=== PATIENT | female | born 1985 | race Caucasian/White ===

== ENCOUNTER → 2019-03-16 | Outpatient (CLI) | payer OTHER ==
--- NOTE | 2019-03-16 15:30 | Diagnostic Imaging Report ---
INDICATION: survey. TECHNIQUE: Multiple real-time grayscale images were obtained over the gravid uterus. COMPARISON: None FINDINGS: There is a single live fetus in a variable presentation. heart rate was recorded at 146 bpm. Placenta is posterior. Amniotic fluid volume is 8.8 cm. Cervical length is 4.0 cm. survey demonstrates kidneys, bladder and stomach to be unremarkable. brain is unremarkable. There is a four-chamber heart. There is a three-vessel cord with normal insertion. spine is unremarkable. Maternal adnexa was not evaluated. Biometrical measurements are as follows: Biparietal 4.46 cm, age 19 weeks 4 days. Head circumference 17.18 cm, age 19 weeks 6 days. Abdominal circumference 14.81 cm, age 20 weeks 1 days. Femur length 3.38 cm, age 20 weeks 5 days. Sonographic estimate age: 20 weeks 1 days. Sonographic estimated date of delivery: 08/02/2019. Estimated Weight: 341 gm (+/- 50 gm). LMP percentile: 68%. heart rate: 146 beats per minute. number: 1 of 1. IMPRESSION: Single live IUP approximately 20 weeks 1 day gestational age. Estimated date of confinement sonographically is 08/02/2019. Dictated by: Dictated on workstation # [id number]
== END ==
LOC: RAD 14:00
PROVIDERS: ATTEND Nurse Practitioner Women's Health
DX: Z36.9 Encounter for antenatal screening, unspecified (principal); Z3A.20 20 weeks gestation of pregnancy
CPT/HCPCS: 76805

== ENCOUNTER 2019-05-26 00:13 | Outpatient (CLI) | payer OTHER ==
[~2019-05-26] VITALS: Ht 185.5 cm; Wt 115.8 kg
[2019-05-26 00:15] VITALS: BP 143/79
--- NOTE | 2019-05-26 00:15 | NUR ---
GRIFFIN VILA presented to unit via ambulatory from ED, with c/o DECREASED MOVEMENT. GRIFFIN VILA weighed, gowned, voided, and to bed. EFHM and TOCO applied, VS taken. GRIFFIN VILA oriented to bed controls, call light, TV, heat, and A/C controls.
[2019-05-26 00:23] VITALS: BP 143/79
[2019-05-26 00:39] VITALS: BP 136/77
[2019-05-26 00:54] VITALS: BP 139/76
[2019-05-26] MEDS ORDERED: PREN-53 PO (01:05)
--- NOTE | 2019-05-26 01:07 | NUR ---
Dr. Marroquin called and informed that pt of Dr. Rodriguez's was here for decreased movement. Strip, contraction pattern, and vitals reviewed. states that when pt starts feeling movement she may be discharged.
[2019-05-26 01:09] VITALS: BP 135/74
--- NOTE | 2019-05-26 01:09 | NUR ---
Pt. asked if baby has been moving since being her. She states that she has moved multiple times since being here and has "kicked the monitors a few times."
--- NOTE | 2019-05-26 01:20 | NUR ---
Discharge instructions reviewed by Nabil Borjas RN at this time. Pt. has no further questions and walks out on her own. No s/s of distress.
--- NOTE | 2019-05-29 08:12 | Physician Query-Final Dx ---
KEY COOMBS 05/29/19 0812: Clinic Account Progress/Dx Physician Query: Please give diagnosis Please include # weeks gestation Date of Service May 26, 2019 at 00:13 LIMA BEALUIEU DO 05/29/19 0937: Clinic Account Progress/Dx DIAGNOSIS: Diagnosis 30 week IUP Decreased movement KEY COOMBS May 29, 2019 08:12 LIMA BEAULIEU DO May 29, 2019 09:37
== END 2019-05-26 01:20 ==
LOC: LDRP 00:13 → WSo 00:13
PROVIDERS: ATTEND Obstetrics & Gynecology
DX: O36.8131 Decreased fetal movements, third trimester, fetus 1 (principal); Z3A.30 30 weeks gestation of pregnancy
CPT/HCPCS: 99212

== ENCOUNTER → 2019-07-10 | Outpatient (CLI) | payer OTHER ==
[~2019-07-10] MED LIST: PREN-53 PO
--- NOTE | 2019-07-10 16:09 | Diagnostic Imaging Report ---
INDICATION: , growth, position. COMPARISON: March 16, 2019. TECHNIQUE: Multiple real-time grayscale images were obtained over the gravid uterus. FINDINGS: A single live intrauterine gestation is identified in a breech presentation. The placenta is fundal and posteriorly positioned without evidence of placenta previa or placental abruption. Amniotic fluid is within normal limits with inadequate index being 11 cm with the largest single pocket measuring 3.6 cm. cardiac motion is documented at 152 BPM. estimated gestational age is calculated to be 36 weeks and 0 days. This is consistent with clinical dating and there has been adequate interval growth since the prior exam. The head circumference appears slightly advanced at 39 weeks and 1 day, though biparietal diameter appears slightly lagging at 33 weeks and 1 day. anatomy was not specifically evaluated on this examination. IMPRESSION: Single live intrauterine gestation in a breech presentation with an estimated gestational age of 36 weeks and 0 days. Therefore, there is an estimated due date based upon this examination of August 07, 2019. Findings are consistent with clinical dating and there has been adequate interval growth since the prior examination. Apparent varying gestational age between the biparietal diameter and the head circumference, as described above. This most likely is simply technical in nature related to positioning. Follow-up ultrasound prior to delivery could be obtained to ensure continued adequate growth. Biometrical measurements are as follows: Biparietal 8.24 cm, age 33 weeks 1 days. Head circumference 33.93 cm, age 39 weeks 1 days. Abdominal circumference 30.67 cm, age 34 weeks 5 days. Femur length 7.15 cm, age 36 weeks 5 days. Sonographic estimate age: 36 weeks 0 days. Sonographic estimated date of delivery: 08/07/2019. Estimated Weight: 2685 gm (+/- 392 gm). LMP percentile: 28%. heart rate: 152 beats per minute. number: 1 of 1. Dictated by: Dictated on workstation # [id number]
== END ==
LOC: RAD 13:48
PROVIDERS: ATTEND Obstetrics & Gynecology
DX: Z36.9 Encounter for antenatal screening, unspecified (principal); O32.1XX0 Maternal care for breech presentation, not applicable or unspecified; Z3A.36 36 weeks gestation of pregnancy
CPT/HCPCS: 76816

== ENCOUNTER 2019-07-28 06:58 | Outpatient (CLI) | payer OTHER ==
[~2019-07-28] VITALS: Ht 185 cm; Wt 118.0 kg
== END 2019-07-28 15:07 ==
LOC: PREOP 06:58 → EDSTATUS 08:00 → PREOP 10:15
PROVIDERS: ATTEND Obstetrics & Gynecology
DX: Z01.818 Encounter for other preprocedural examination (principal)

== ENCOUNTER 2019-08-01 09:00 | Inpatient (IN) | payer OTHER ==
[2019-08-01] VITALS (11 sets, daily range): BP systolic 107–135; BP diastolic 8–93
[~2019-08-01] VITALS: Ht 185 cm; Wt 118.9 kg
[2019-08-01] MEDS ORDERED: ONDANSETRON 4 MG/2 ML (SDV) Z0FRAN ONE (10:35)
[2019-08-01] MEDS ORDERED: OXYTOCIN PRE-MIX DRIP 1,000 ML IV ONE (10:35)
[2019-08-01] MEDS ORDERED: BUPIVACAINE 0.5% 30 ML (SENSORCAINE) VIAL ONE (10:35)
[2019-08-01] MEDS ORDERED: DEXAMETHASONE 10 MG/ML (DECADRON) 1 ML VIAL ONE (10:35)
--- NOTE | 2019-08-01 10:35 | NUR ---
GRIFFIN VILA presented to unit via ambulation from ED, accompanied by S.o., for repeat . GRIFFIN VILA weighed, gowned, voided, and to bed. EFHM and TOCO applied, VS taken. GRIFFIN VILA oriented to bed controls, call light, TV, heat, and A/C controls.
[2019-08-01] MEDS ORDERED: fentaNYL INJECTION 100 MCG/2 ML AMP ONE (10:36)
[2019-08-01] MEDS ORDERED: ceFAZolin INJECTION 1,000 MG in WATER (STERILE) FOR INJECTION 10 ML IV ONE (10:45)
[2019-08-01] MEDS: LACTATED RINGERS 1,000 ML IV PRN ×2 (11:15→12:10)
[2019-08-01 11:30] LABS: BASOPHILS % (AUTO) 0 % (0-10); EOSINOPHILS # (AUTO) 0.1 10^3/uL (0.0-0.3); EOSINOPHILS % (AUTO) 1 % (0-10); HEMATOCRIT 40 % (35-52); HEMOGLOBIN 13.8 G/DL (11.5-16.0); LYMPHOCYTES # (AUTO) 1.9 X 10^3 (1.0-4.0); LYMPHOCYTES % (AUTO) 18 % (12-44); MEAN CORPUSCULAR HEMOGLOBIN 31 PG (25-34); MEAN CORPUSCULAR HGB CONC 35 G/DL (32-36); MEAN CORPUSCULAR VOLUME 90 FL (80-99); MEAN PLATELET VOLUME 11.3 FL (7.4-10.4); MONOCYTES # (AUTO) 0.7 X 10^3 (0.0-1.0); MONOCYTES % (AUTO) 7 % (0-12); NEUTROPHILS # (AUTO) 7.8 X 10^3 (1.8-7.8); NEUTROPHILS % (AUTO) 74 % (42-75); PLATELET COUNT 208 10^3/uL (130-400); RED CELL DISTRIBUTION WIDTH 14.5 % (10.0-14.5); WHITE BLOOD COUNT 10.5 10^3/uL (4.3-11.0)
[2019-08-01 11:31] LABS: BILIRUBIN,URINE NEGATIVE (NEGATIVE); CLARITY,URINE SL CLOUDY; COLOR,URINE YELLOW; GLUCOSE, URINE (UA) NEGATIVE (NEGATIVE); KETONES,URINE NEGATIVE (NEGATIVE); LEUKOCYTE ESTERASE ,URINE 1+ (NEGATIVE); NITRITE,URINE NEGATIVE (NEGATIVE); PROTEIN,URINE NEGATIVE (NEGATIVE)
[2019-08-01] MEDS ORDERED: FAMOTIDINE 20MG/2ML IV (PEPCID) ONE (11:34)
[2019-08-01] MEDS ORDERED: METOCLOPRAMIDE INJ 10 MG/2 ML (REGLAN) ONE (11:34)
[2019-08-01] MEDS ORDERED: CITRIC ACID/SOB CIT (BICITRA) 30 ML UDC ONE (11:34)
[2019-08-01 11:37] LABS: BACTERIA,URINE MODERATE /HPF; RBC,URINE 0-2 /HPF
[2019-08-01] MEDS ORDERED: PHENYLEPHRINE 100 MCG/ML 10 ML (ANESTHESIA) SYR ONE (12:02)
--- OUTSIDE RECORDS SUMMARY | 2019-08-01 12:07 | XMS REPORT | Continuity of Care Document ---
Author Organization Unknown Address Unknown Phone Unavailable Allergies Active Description Code Type Severity Reaction Onset Reported/Identified Relationship to Patient Clinical Status Yes No Known Drug Allergies [id number] Drug Allergy Unknown N/A 07/28/2019 Medications There is no data. Problems Date Dx Coded Attending Type Code Diagnosis Diagnosed By 03/17/2019 DU SIGALA PRENATAL GENETIC COUNSELOR Ot Z36.9 ENCOUNTER FOR SCREENING, UNSPE 03/17/2019 DU SIGALA PRENATAL GENETIC COUNSELOR Ot Z3A.20 20 WEEKS GESTATION OF 04/05/2019 DU SIGALA PRENATAL GENETIC COUNSELOR Ot Z36.9 ENCOUNTER FOR SCREENING, UNSPE 04/05/2019 DU SIGALA PRENATAL GENETIC COUNSELOR Ot Z3A.20 20 WEEKS GESTATION OF 05/26/2019 DU SIGALA PRENATAL GENETIC COUNSELOR Ot Z36.9 ENCOUNTER FOR SCREENING, UNSPE 05/26/2019 DU SIGALA PRENATAL GENETIC COUNSELOR Ot Z3A.20 20 WEEKS GESTATION OF 05/26/2019 FENECH DO, LIMA S Ot O36.8131 DECREASED MOVEMENTS, THIRD TRIMEST 05/26/2019 FENECH DO, LIMA S Ot Z3A.30 30 WEEKS GESTATION OF 05/30/2019 FENECH DO, LIMA S Ot O36.8131 DECREASED MOVEMENTS, THIRD TRIMEST 05/30/2019 FENECH DO, LIMA S Ot Z3A.30 30 WEEKS GESTATION OF 07/11/2019 SOTELO DO FARIHA C Ot O32.1XX0 MATERNAL CARE FOR BREECH PRESENTATION, U 07/11/2019 SOTELO DO, FARIHA C Ot Z36.9 ENCOUNTER FOR SCREENING, UNSPE 07/11/2019 SOTELO DO, FARIHA C Ot Z3A.3 6 36 WEEKS GESTATION OF 07/18/2019 SOTELO DO, FARIHA C Ot O32.1XX0 MATERNAL CARE FOR BREECH PRESENTATION, U 07/18/2019 SOTELO DO, FARIHA C Ot Z36.9 ENCOUNTER FOR SCREENING, UNSPE 07/18/2019 SOTELO DO FARIHA C Ot Z3A.3 6 36 WEEKS GESTATION OF 07/31/2019 FARIHA SOTELO DO Ot Z01.8 18 ENCOUNTER FOR OTHER PREPROCEDURAL EXAMIN Procedures There is no data. Results Test Result Range Coronavirus SARS-CoV-2 SO 2018 - 0 14:30 Coronavirus Ab [Units/volume] in Serum Negative Negative Encounters ACCT No. Visit Date/Time Discharge Status Pt. Type Provider Facility Loc./Unit Complaint [id number] 04/24/2019 15:48:42 04/24/2019 23:59:5 9 CLS Outpatient [id number] 07/28/2019 06:58:00 020 15:07:00 DIS Outpatient FARIHA SOTELO DO [facility] PREOP PREVIOUS [id number] 07/10/2019 13:48:00 020 23:59:59 CLS Outpatient FARIHA SOTELO DO [facility] RAD [id number] 05/26/2019 00:13:00 020 01:20:00 DIS Outpatient LIMA BEAULIEU DO [facility] WSo DECREASED MOVEME NT [id number] 03/16/2019 14:00:00 019 23:59:59 CLS Outpatient DU SIGALA APRN [facility] RAD [id number] 08/01/2019 09:00:00 P EN Preadmit FARIHA SOTELO DO P REVIOUS
--- NOTE | 2019-08-01 13:00 | NUR ---
Report to Elliot Kirkland RN
[2019-08-01] MEDS ORDERED: OXYTOCIN PRE-MIX DRIP 500 ML IV SCH (13:02)
[2019-08-01] MEDS ORDERED: TETANUS,DIPTH,PERTUSS P/F (BOOSTRIX) 0.5 ML VIAL IM SCH (13:15)
[2019-08-01] MEDS ORDERED: MEASLES,MUMPS,RUBELLA 1 EA INJ SC SCH (13:15)
[2019-08-01] MEDS ORDERED: morphine INJ 4 MG/ML 1 ML (VIAL/SYRINGE) IVP PRN (13:15)
--- NOTE | 2019-08-01 13:30 | Cesarean Section Operative ---
Procedure Procedure Note Pre-operative Diagnosis: Preet Neff is a 33 /Para 2/ 1,Gestational Age 39 4/7 week gestation, breech presentation. Post-operative Diagnosis: same, yuri breech Procedure: Repeat low transverse section Physician: FARIHA SOTELO Estimated blood loss: 500 mL Disposition: stable Findings: Viable female , Apgars 8/9, weight 7#10 ounces, intact placenta, 3vc, normal appearing uterus, tubes, and ovaries. Indications:Preet Neff is a 33 /Para 2/ 1,Gestational Age 39 4/7 wee k gestation, breech presentation. Procedure Details: The patient was seen in pre-op and the procedure was discussed with the patient in full, including the risks, benefits, and alternatives. All questions were answered. The patient was taken to the operating room and a time out was performed, verifying patient and procedure. After spinal anesthesia was placed by our anesthesia colleagues, the patient was placed in the dorsal supine with leftward tilt for uterine displacement.~ Her abdomen was then prepped and draped in the typical sterile fashion. A Pfannenstiel skin incision was made using a scalpel and carried down through the underlying fascia. The fascia was incised in the midline and tented up using Cordell clamps. On both the inferior and superior fascia side the rectus muscle was dissected off bluntly and sharply using Abbott scissors. These were very densely adherent to the fascia. The peritoneum was identified and entered bluntly in the midline. This incision was extended inferiorly and superiorly. This was then stretched laterally using manual strength. After entering the abdominal cavity I noted an adhesion from the left anterior uterus to the omentum. This was thick like a band. I cute and cauterized this. Now, an extra large Jelani retractor was placed and the lower uterine segment was visualized. The bladder was advanced up over the lower uterine segment, so I had to take this down before I could safely enter the uterus. A bladder flap was created with the use of Metzenbaum scissors.~ A scalpel was utilized to make a low transverse uterine incision. Amniotomy was performed with an Allis clamp with return of clear fluid. The 's right hip was presenting. I was able to deliver the right leg by flexing the knee and then bringing the foot to the incision. The left knee was also flexed and the foot brought to the incision. The feet were now delivered. The was delivered up to the scapulae bilaterally. I then flexed the arms across the chest to deliver the arms and shoulders. The head was noted to be slightly flexed and turned to the felt. I utilized the Pusexepc-Prbtcxq-Nurh maneuver to flex the head and deliver the head and infant was delivered without difficulty. Mouth and nares were suctioned with bulb suction. After the umbilical cord was clamped and cut, the infant was handed off to the pediatric staff. A sample of cord blood was then obtained. The placenta was delivered intact via uterine massage. The uterus was cleared of all clots and debris. There is a possible small septum. It was difficult to determine as the uterus was jerome as well, but this may explain the repetitive breech presentation. The pelvic inlet was also noted to be narrow. The uterine incision was closed using 0 Vicryl in a running locked fashion. A second imbricating layer was placed using 0 Vicryl in a running fashion as well. The bilateral tubes and ovaries appeared normal. The abdominal gutters were cleared of all clots and debris. A final check of the uterine incision showed it to be hemostatic. The peritoneum was closed using 3-0 Vicryl in a running fashion. The fascia was closed with 0 Vicryl in a running fashion. The subcutaneous space was hemostatic, and irrigated. The subcutaneous space was closed with 0 Plain in several single interrupted stitches. The skin was then closed using 4-0 Monocryl in a running subcuticular fashion. The skin edges were reapproximated together and were hemostatic. A pressure dressing was applied. All sponge, lap and needle counts were correct at the end of the procedure per nursing. Vitals - Labs Labs Laboratory Tests 08/01/19 11:15: White Blood Count 10.5, Red Blood Count 4.44, Hemoglobin 13.8, Hematocrit 40, Mean Corpuscular Volume 90, Mean Corpuscular Hemoglobin 31, Mean Corpuscular Hemoglobin Concent 35, Red Cell Distribution Width 14.5, Platelet Count 208, Mean Platelet Volume 11.3H, Neutrophils (%) (Auto) 74, Lymphocytes (%) (Auto) 18, Monocytes (%) (Auto) 7, Eosinophils (%) (Auto) 1, Basophils (%) (Auto) 0, Neutrophils # (Auto) 7.8, Lymphocytes # (Auto) 1.9, Monocytes # (Auto) 0.7, Eosinophils # (Auto) 0.1, Basophils # (Auto) 0.0, Urine Color YELLOW, Urine Clarity SL CLOUDY, Urine pH 6.0, Urine Specific Benedict 1.025H, Urine Protein NEGATIVE, Urine Glucose (UA) NEGATIVE, Urine Ketones NEGATIVE, Urine Nitrite NEGATIVE, Urine Bilirubin NEGATIVE, Urine Urobilinogen 1.0, Urine Leukocyte Esterase 1+H, Urine RBC (Auto) TRACE-I, Urine RBC 0-2, Urine WBC 10-25H, Urine Squamous Epithelial Cells 10-25H, Urine Crystals NONE, Urine Bacteria MODERATEH, Urine Casts NONE, Urine Mucus SMALLH, Urine Culture Indicated YES FARIHA SOTELO DO August 01, 2019 13:29
--- NOTE | 2019-08-01 14:15 | NUR ---
Transferred to 307 via bed, Pawel, father of baby, pushing infant in crib. This nurse to continue care of pt on . FF @ u/1 with moderate to heavy vaginal bleeding. 1545 Moderate amount of clots expressed - massaged to firm. Flow moderate to heavy.
[2019-08-01] MEDS: KETOROLAC 30 MG/ML VIAL IV SCH ×2 (15:07→20:39)
--- NOTE | 2019-08-01 17:30 | NUR ---
Pain rating 4 - gave Oxycodone. Moderate-heavy flow with saturated pad. FF @ u/1. No urge to void.
[2019-08-01] MEDS: CATHETER FLUSH 10 ML SYR IV SCH ×2 (20:08→23:55)
[2019-08-01] MEDS: DOCUSATE SODIUM 100 MG (COLACE) CAP PO SCH (20:40)
[2019-08-01] MEDS: ACETAMINOPHEN 500 MG TAB (TYLENOL) PO SCH (20:40)
[2019-08-02] VITALS: BP 125/68
[2019-08-02] MEDS: KETOROLAC 30 MG/ML VIAL IV SCH ×2 (02:19→08:45)
--- NOTE | 2019-08-02 02:27 | NUR ---
Pt resting in bed after successful feed, Toradol 30mg IV given and no complaints at this time.
[2019-08-02] MEDS: CATHETER FLUSH 10 ML SYR IV SCH ×2 (03:00→13:13)
[2019-08-02 04:00] VITALS: BP 128/73
[2019-08-02] MEDS: ACETAMINOPHEN 500 MG TAB (TYLENOL) PO SCH ×3 (04:45→20:49)
[2019-08-02 04:58] LABS: BASOPHILS % (AUTO) 0 % (0-10); EOSINOPHILS # (AUTO) 0.1 10^3/uL (0.0-0.3); EOSINOPHILS % (AUTO) 0 % (0-10); HEMATOCRIT 33 % (35-52); HEMOGLOBIN 11.4 G/DL (11.5-16.0); LYMPHOCYTES # (AUTO) 1.4 X 10^3 (1.0-4.0); LYMPHOCYTES % (AUTO) 10 % (12-44); MEAN CORPUSCULAR HEMOGLOBIN 31 PG (25-34); MEAN CORPUSCULAR HGB CONC 34 G/DL (32-36); MEAN CORPUSCULAR VOLUME 91 FL (80-99); MEAN PLATELET VOLUME 11.1 FL (7.4-10.4); MONOCYTES # (AUTO) 0.9 X 10^3 (0.0-1.0); MONOCYTES % (AUTO) 6 % (0-12); NEUTROPHILS # (AUTO) 11.4 X 10^3 (1.8-7.8); NEUTROPHILS % (AUTO) 83 % (42-75); PLATELET COUNT 162 10^3/uL (130-400); RED CELL DISTRIBUTION WIDTH 14.5 % (10.0-14.5); WHITE BLOOD COUNT 13.7 10^3/uL (4.3-11.0)
[2019-08-02] MEDS ORDERED: MILK OF MAGNESIA 400 MG/5 ML 30 ML UDC PO PRN (05:00)
[2019-08-02 08:43] VITALS: BP 114/71
[2019-08-02] MEDS: DOCUSATE SODIUM 100 MG (COLACE) CAP PO SCH ×2 (08:44→20:48)
--- NOTE | 2019-08-02 08:59 | Postpartum Progress Note ---
Post Op Post-operative Day #1 s/p RLTCS Subjective: Patient is without complaints. Ambulating, voiding after palomo removed. Tolerating a regular diet without nausea or vomiting. Normal lochia. Pain is well controlled with oral pain medications. Passing flatus. breast feeding. Objective: Microbiology 08/01/19 Urine Culture - Preliminary, Resulted Lactobacillus species 08/02/19 08/02/19 08/02/19 00:00 04:00 08:43 Temp 36.4 36.3 36.3 Pulse 95 89 100 Resp 18 18 16 B/P (MAP) 125/68 (87) 128/73 (91) 114/71 (85) Pulse Ox 99 98 99 O2 Delivery Room Air Room Air Room Air 08/02/19 00:00 Intake Total 2000 ml Output Total 75 ml Balance 1925 ml Laboratory Tests Test 08/01/19 11:15 08/02/19 04:21 Range/Units White Blood Count 10.5 13.7 H 4.3-11.0 10^3/uL Red Blood Count 4.44 3.68 L 4.35-5.85 10^6/uL Hemoglobin 13.8 11.4 L 11.5-16.0 G/DL Hematocrit 40 33 L 35-52 % Mean Corpuscular Volume 90 91 80-99 FL Mean Corpuscular Hemoglobin 31 31 25-34 PG Mean Corpuscular Hemoglobin Concent 35 34 32-36 G/DL Red Cell Distribution Width 14.5 14.5 10.0-14.5 % Platelet Count 208 162 130-400 10^3/uL Mean Platelet Volume 11.3 H 11.1 H 7.4-10.4 FL Neutrophils (%) (Auto) 74 83 H 42-75 % Lymphocytes (%) (Auto) 18 10 L 12-44 % Monocytes (%) (Auto) 7 6 0-12 % Eosinophils (%) (Auto) 1 0 0-10 % Basophils (%) (Auto) 0 0 0-10 % Neutrophils # (Auto) 7.8 11.4 H 1.8-7.8 X 10^3 Lymphocytes # (Auto) 1.9 1.4 1.0-4.0 X 10^3 Monocytes # (Auto) 0.7 0.9 0.0-1.0 X 10^3 Eosinophils # (Auto) 0.1 0.1 0.0-0.3 10^3/uL Basophils # (Auto) 0.0 0.0 0.0-0.1 10^3/uL Urine Color YELLOW Urine Clarity SL CLOUDY Urine pH 6.0 5-9 Urine Specific [place] 1.025 H 1.016-1.022 Urine Protein NEGATIVE NEGATIVE Urine Glucose (UA) NEGATIVE NEGATIVE Urine Ketones NEGATIVE NEGATIVE Urine Nitrite NEGATIVE NEGATIVE Urine Bilirubin NEGATIVE NEGATIVE Urine Urobilinogen 1.0 < = 1.0 MG/DL Urine Leukocyte Esterase 1+ H NEGATIVE Urine RBC (Auto) TRACE-I NEGATIVE Urine RBC 0-2 /HPF Urine WBC 10-25 H /HPF Urine Squamous Epithelial Cells 10-25 H /HPF Urine Crystals NONE /LPF Urine Bacteria MODERATE H /HPF Urine Casts NONE /LPF Urine Mucus SMALL H /LPF Urine Culture Indicated YES Physical Exam: General - Alert and oriented, no apparent distress Abdomen - Soft, appropriately tender to palpation, non-distended, fundus firm at umbilicus Incision - clean, dry and intact; no erythema or induration, no drainage Extremities - no edema, negative Anni's bilaterally Assessment: 1. post-operative day # 1, status post RLTCS/breech. Recovering well, hemodynamically stable Acute blood loss anemia Plan: Routine post-operative care. Encourage breast feeding. Encourage ambulation. VTE prophylaxis: SCDs. Plan for discharge tomorrow Vitals - Labs Vital Signs - I&O Vital Signs Date Time Temp Pulse Resp B/P (MAP) Pulse Ox O2 Delivery O2 Flow Rate FiO2 08/02/19 08:43 36.3 100 16 114/71 (85) 99 Room Air 08/02/19 04:00 36.3 89 18 128/73 (91) 98 Room Air 08/02/19 00:00 36.4 95 18 125/68 (87) 99 Room Air 08/01/19 20:00 36.5 99 18 128/86 (100) 96 Room Air 08/01/19 15:00 36.0 78 16 121/85 (97) 100 Room Air 08/01/19 14:30 36.1 75 16 125/69 (87) 100 Nasal Cannula 08/01/19 14:00 36.2 16 116/71 (86) 98 Room Air 08/01/19 14:00 Room Air 08/01/19 13:45 Room Air 08/01/19 13:45 35.9 16 128/8 (48) 99 Room Air 08/01/19 13:30 Room Air 08/01/19 13:30 36.2 16 112/65 (81) 98 Room Air 08/01/19 13:15 36.3 16 111/58 (75) 100 Room Air 08/01/19 13:15 Room Air 08/01/19 13:00 36.3 16 107/55 (72) 98 Room Air 08/01/19 13:00 Room Air 08/01/19 11:00 35.9 104 20 98 Room Air 08/01/19 10:55 93 20 135/93 (107) Room Air 08/01/19 10:45 35.9 104 20 132/92 (105) 98 Room Air I & O 08/02/19 07:00 Intake Total 3010 ml Output Total 1375 ml Balance 1635 ml Labs Laboratory Tests 08/01/19 11:15: White Blood Count 10.5, Red Blood Count 4.44, Hemoglobin 13.8, Hematocrit 40, Mean Corpuscular Volume 90, Mean Corpuscular Hemoglobin 31, Mean Corpuscular Hemoglobin Concent 35, Red Cell Distribution Width 14.5, Platelet Count 208, Mean Platelet Volume 11.3H, Neutrophils (%) (Auto) 74, Lymphocytes (%) (Auto) 18, Monocytes (%) (Auto) 7, Eosinophils (%) (Auto) 1, Basophils (%) (Auto) 0, Neutrophils # (Auto) 7.8, Lymphocytes # (Auto) 1.9, Monocytes # (Auto) 0.7, Eosinophils # (Auto) 0.1, Basophils # (Auto) 0.0, Urine Color YELLOW, Urine Clarity SL CLOUDY, Urine pH 6.0, Urine Specific Gardiner 1.025H, Urine Protein NEGATIVE, Urine Glucose (UA) NEGATIVE, Urine Ketones NEGATIVE, Urine Nitrite NEGATIVE, Urine Bilirubin NEGATIVE, Urine Urobilinogen 1.0, Urine Leukocyte Esterase 1+H, Urine RBC (Auto) TRACE-I, Urine RBC 0-2, Urine WBC 10-25H, Urine Squamous Epithelial Cells 10-25H, Urine Crystals NONE, Urine Bacteria MODERATEH, Urine Casts NONE, Urine Mucus SMALLH, Urine Culture Indicated YES 08/02/19 04:21: White Blood Count 13.7H, Red Blood Count 3.68L, Hemoglobin 11.4L, Hematocrit 33L , Mean Corpuscular Volume 91, Mean Corpuscular Hemoglobin 31, Mean Corpuscular Hemoglobin Concent 34, Red Cell Distribution Width 14.5, Platelet Count 162, Mean Platelet Volume 11.1H, Neutrophils (%) (Auto) 83H, Lymphocytes (%) (Auto) 10L, Monocytes (%) (Auto) 6, Eosinophils (%) (Auto) 0, Basophils (%) (Auto) 0, Neutrophils # (Auto) 11.4H, Lymphocytes # (Auto) 1.4, Monocytes # (Auto) 0.9, Eosinophils # (Auto) 0.1, Basophils # (Auto) 0.0 Microbiology 08/01/19 Urine Culture - Preliminary, Resulted Lactobacillus species FARIHA SOTELO DO August 02, 2019 08:59
--- NOTE | 2019-08-02 09:05 | Anesthesia-Regional Post-Op ---
Regional Patient Condition Mental Status: Alert, Oriented x3 Circulation: Same as Pre-Op Headache: Absent Sensation: Full Recovery Motor Block: Absent Post Op Complications Complications None Follow Up Care/Instructions Patient Instructions None needed. Anesthesia/Patient Condition Patient is doing well, no complaints, stable vital signs, no apparent adverse anesthesia problems. No complications reported per nursing. DEEDEE ARECHIGA CRNA August 02, 2019 09:05
[2019-08-02 12:27] VITALS: BP 116/72
[2019-08-02] MEDS: IBUPROFEN 600 MG (MOTRIN) TAB PO SCH ×2 (15:14→20:48)
[2019-08-02 16:23] VITALS: BP 118/72
[2019-08-02 21:00] VITALS: BP 129/80
--- NOTE | 2019-08-02 21:22 | NUR ---
Pt resting in bed with no complaints at this time.
[2019-08-03] MEDS: IBUPROFEN 600 MG (MOTRIN) TAB PO SCH ×2 (02:31→08:59)
[2019-08-03 02:47] VITALS: BP 130/83
[2019-08-03] MEDS: CATHETER FLUSH 10 ML SYR IV SCH ×2 (05:24→06:09)
[2019-08-03] MEDS: ACETAMINOPHEN 500 MG TAB (TYLENOL) PO SCH (05:30)
--- NOTE | 2019-08-03 05:40 | NUR ---
Infant in mothers arms. no concern at this time. mother states last feeding was a better latch than previous attempts.
--- NOTE | 2019-08-03 06:26 | Postpartum Progress Note ---
Post Op Post-operative Day #2 s/p RLTCS Subjective: Patient is without complaints. Ambulating, voiding after palomo removed. Tolerating a regular diet without nausea or vomiting. Normal lochia. Pain is well controlled with oral pain medications. Passing flatus. breast feeding. Objective: 08/02/19 08/03/19 21:00 02:47 Temp 36.8 36.1 Pulse 93 80 Resp 18 18 B/P (MAP) 129/80 (96) 130/83 (99) Pulse Ox 99 99 O2 Delivery Room Air Room Air 08/03/19 00:00 Intake Total 720 ml Output Total 1000 ml Balance -280 ml Physical Exam: General - Alert and oriented, no apparent distress Abdomen - Soft, appropriately tender to palpation, non-distended, fundus firm at umbilicus Incision - clean, dry and intact; no erythema or induration, no drainage Extremities - no edema, negative Anni's bilaterally Assessment: 1. post-operative day # 2, status post RLTCS. Recovering well, hemodynamically stable Plan: Routine post-operative care. Encourage breast feeding. Encourage ambulation. VTE prophylaxis: SCDs. Plan for discharge today Vitals - Labs Vital Signs - I&O Vital Signs Date Time Temp Pulse Resp B/P (MAP) Pulse Ox O2 Delivery O2 Flow Rate FiO2 08/03/19 02:47 36.1 80 18 130/83 (99) 99 Room Air 08/02/19 21:00 36.8 93 18 129/80 (96) 99 Room Air 08/02/19 16:23 36.6 94 16 118/72 (87) 97 Room Air 08/02/19 12:27 36.6 103 16 116/72 (87) 97 Room Air 08/02/19 08:43 36.3 100 16 114/71 (85) 99 Room Air I & O 08/03/19 07:00 Intake Total 720 ml Output Total 1000 ml Balance -280 ml Labs Microbiology 08/01/19 Urine Culture - Preliminary, Resulted Lactobacillus species FARIHA SOTELO DO August 03, 2019 06:26
[2019-08-03] MEDS ORDERED: IBUP-844 PO (06:28)
[2019-08-03] MEDS ORDERED: ACET-93 PO (06:28)
[2019-08-03] MEDS ORDERED: OXYC5TAB96 PO (06:28)
[2019-08-03] MEDS ORDERED: DCS100C PO (06:28)
--- NOTE | 2019-08-03 06:30 | Discharge Inst-Women's Service ---
Discharge Inst-Women's Serv Depart Medication/Instructions New, Converted or Re-Newed RX: Other (on chart and transmitted to pharmacy) Instructions no driving for 1 week, nothing in the vagina for 4-6 weeks no lifting over 25 lbs Final Diagnosis Previous section Breech presentation Problems Reviewed?: Yes Consults/Follow Up Additional Follow Up: Yes (1-2 week for incision check/this can be a phone call (set up appointment for the call); 6 week post exam. ) Activity Activity: Activity as Tolerated Driving Instructions: No Driving for 1 Week NO SMOKING: NO SMOKING Nothing Inside Vagina: No Douching, No Colby, No Tampons Diet Discharge Diet: No Restrictions Symptoms to Report to DrJose: Swelling Increased, Bleeding Excessive, Pain Increased, Fever Over 101 Degrees F, Vaginal Bleeding Increase, Cramps in Feet or Legs, Vaginal Discharge Foul For Any Problems or Questions: Contact Your Physician Skin/Wound Care Infection Signs and Symptoms: Increased Redness, Foul Odor of Wound, Increased Drainage, Skin Itchy or Has a Rash, Increased Swelling, Temperature Above 101 F Operative Area Clean and Dry: Keep Incision Clean/Dry Stitches/[place]/Dermabond: Dermabond Bathing Instructions: FARIHA Austin DO August 03, 2019 06:30
--- NOTE | 2019-08-03 08:58 | NUR ---
here. dismissal orders received.
[2019-08-03] MEDS: DOCUSATE SODIUM 100 MG (COLACE) CAP PO SCH (08:59)
[2019-08-03 09:01] VITALS: BP 123/85
--- NOTE | 2019-08-03 09:01 | NUR ---
initial shift assessment completed, see interventions for further.
--- NOTE | 2019-08-03 10:28 | NUR ---
dismissal instructions given, verbalizes understanding. reviewed medications and follow up appointments. signature page signed, placed on chart.
[2019-08-03 11:10] VITALS: BP 109/64
--- NOTE | 2019-08-03 11:45 | NUR ---
pt dismissed to private vehicle via w/c with staff, and infant @ side. infant secured in rear facing car seat. pt stable with no sx's of distress noted.
== END 2019-08-03 11:45 | disposition home or self-care (01) | DRG 787 ==
LOC: LDRP 10:25
PROVIDERS: ADMIT Obstetrics & Gynecology; ATTEND Obstetrics & Gynecology
PROC: 10D00Z1 Extraction of Products of Conception, Low, Open Approach (ICD-10-PCS; principal; 2019-08-01 11:53)
DX: O64.1XX0 Obstructed labor due to breech presentation, not applicable or unspecified (principal); O34.211 Maternal care for low transverse scar from previous cesarean delivery; O90.81 Anemia of the puerperium; D62 Acute posthemorrhagic anemia; Z37.0 Single live birth; Z3A.39 39 weeks gestation of pregnancy
CPT/HCPCS: 36415; 81000; 85025; 86850; 86900; 86901; 87088

== ENCOUNTER → 2020-07-16 | Outpatient (CLI) | payer BC, OTHER ==
[~2020-07-16] MED LIST changes: +ACET-93 PO; +DCS100C PO; +IBUP-844 PO; +OXC5T PO
--- NOTE | 2020-07-16 11:44 | Diagnostic Imaging Report ---
INDICATION: Upper and lower back pain symptoms of 3 weeks duration with no known injury. FINDINGS: Lumbar statures are normal. The alignment is anatomic. The disc space is preserved. No evidence for defect of the pedicles or pars. No bony destructive process. IMPRESSION: Normal radiographic appearance of the anatomically aligned lumbar spine. Dictated by: Dictated on workstation # [id number]
--- NOTE | 2020-07-16 11:55 | Diagnostic Imaging Report ---
EXAMINATION: Thoracic spine at 9:40 AM. INDICATION: Back pain. TECHNIQUE/COMPARISON: AP, lateral, and swimmer's views were obtained. There are no prior studies available for comparison. FINDINGS: The lateral view shows the vertebral body heights and alignment to be generally within normal limits. There is only mild degenerative disease throughout the thoracic spine. There is no fracture or acute bony abnormality appreciated. There is no sign of a paraspinal mass. IMPRESSION: 1. There is no evidence for an acute bony abnormality. 2. If clinical concern regarding an underlying abnormality persists and further imaging is desired, then MRI would be recommended. Dictated by: Dictated on workstation # [id number]
== END ==
LOC: RAD 09:21
PROVIDERS: ATTEND Nurse Practitioner Family
DX: M54.6 Pain in thoracic spine (principal); M54.5 Low back pain; M54.2 Cervicalgia
CPT/HCPCS: 72072; 72100

== ENCOUNTER → 2022-06-03 | Outpatient (CLI) | payer BC ==
[~2022-06-03] MED LIST changes: -DCS100C PO; +DOCU-239 PO
--- NOTE | 2022-06-03 16:48 | Diagnostic Imaging Report ---
INDICATION: TECHNIQUE: Multiple real-time grayscale images were obtained over the gravid uterus. COMPARISON: None FINDINGS: Biometrical measurements are as follows: Biparietal 4.63 cm, age 20 weeks 0 days. Head circumference 18.51 cm, age 21 weeks 0 days. Abdominal circumference 15.94 cm, age 21 weeks 1 days. Femur length 3.43 cm, age 20 weeks 6 days. Sonographic estimate age: 20 weeks 6 days. Sonographic estimated date of delivery: 10/15/2022. Estimated Weight: 384 gm (+/- 56 gm). LMP percentile: 39%. heart rate: 153 beats per minute. number: 1 of 1. Single live intrauterine measuring at 20 weeks and 6 days with an MANDY of 10/15/2022. Fetus is in breech presentation. The placenta is posterior and within normal limits. The largest amniotic fluid pocket measures 7.5 cm. The heart rate is 153 bpm. The cervix is normal measuring 4.8 cm. No placenta previa. The lateral ventricles, cisterna magna, CSP, cord insertion, stomach are visualized and normal. The diaphragm, stomach, spine, four-chamber heart, LVOT, RVOT kidneys, bladder, spine, nose/lips, nasal profile are suboptimally evaluated due to positioning. Gender is likely female. Recommend attention on follow-up exam. IMPRESSION: Single live intrauterine at 20 weeks and 6 days which is within normal limits. The diaphragm, stomach, spine, four-chamber heart, LVOT, RVOT kidneys, bladder, spine, nose/lips, nasal profile are suboptimally evaluated due to positioning. Recommend attention on follow-up exam. Dictated by: Dictated on workstation # [id number]
== END ==
LOC: RAD 15:15
PROVIDERS: ATTEND Nurse Practitioner Women's Health
DX: Z34.02 Encounter for supervision of normal first pregnancy, second trimester (principal); Z3A.20 20 weeks gestation of pregnancy
CPT/HCPCS: 76805

== ENCOUNTER 2022-09-30 05:29 | Outpatient (CLI) | payer BC ==
[~2022-09-30] VITALS: Ht 185.5 cm; Wt 122.0 kg
[2022-10-01] MEDS ORDERED: FERR-84 PO (16:35)
[2022-10-01] MEDS ORDERED: FAMO40TA72 PO (16:35)
== END 2022-10-01 17:03 | disposition home or self-care (01) ==
LOC: PREOP 05:29
PROVIDERS: ATTEND Obstetrics & Gynecology
DX: Z01.818 Encounter for other preprocedural examination (principal)

== ENCOUNTER 2022-10-07 05:28 | Inpatient (IN) | payer BC ==
[~2022-10-07] VITALS: Ht 185.5 cm; Wt 111.1 kg
[2022-10-07] VITALS (11 sets, daily range): BP systolic 95–141; BP diastolic 43–74
[~2022-10-07 05:28] MED LIST changes: +FAMO40TA72 PO; +FERR-84 PO
[2022-10-07] MEDS ORDERED: LACTATED RINGERS 1,000 ML IV PRN ×2 (05:45)
[2022-10-07] MEDS ORDERED: FAMOTIDINE 20MG/2ML IV (PEPCID) IV ONE (05:45)
[2022-10-07] MEDS ORDERED: METOCLOPRAMIDE INJ 10 MG/2 ML (REGLAN) IV ONE (05:45)
[2022-10-07] MEDS ORDERED: ceFAZolin INJECTION 2,000 MG in NS (IVPB) 50 ML IV ONE (05:45)
[2022-10-07] MEDS ORDERED: CATHETER FLUSH 10 ML SYR IV PRN (05:45)
[2022-10-07] MEDS ORDERED: CITRIC ACID/SOB CIT (BICITRA) 30 ML UDC PO ONE (05:45)
[2022-10-07 06:08] LABS: BASOPHILS % (AUTO) 0 % (0-10); EOSINOPHILS # (AUTO) 0.1 10^3/uL (0.0-0.3); EOSINOPHILS % (AUTO) 1 % (0-10); HEMATOCRIT 37 % (35-52); HEMOGLOBIN 13.2 g/dL (11.5-16.0); LYMPHOCYTES # (AUTO) 2.7 10^3/uL (1.0-4.0); LYMPHOCYTES % (AUTO) 27 % (12-44); MEAN CORPUSCULAR HEMOGLOBIN 31 pg (25-34); MEAN CORPUSCULAR HGB CONC 35 g/dL (32-36); MEAN CORPUSCULAR VOLUME 88 fL (80-99); MEAN PLATELET VOLUME 11.1 fL (9.0-12.2); MONOCYTES # (AUTO) 0.7 10^3/uL (0.0-1.0); MONOCYTES % (AUTO) 6 % (0-12); NEUTROPHILS # (AUTO) 6.6 10^3/uL (1.8-7.8); NEUTROPHILS % (AUTO) 65 % (42-75); PLATELET COUNT 207 10^3/uL (130-400); WHITE BLOOD COUNT 10.1 10^3/uL (4.3-11.0)
[2022-10-07] MEDS ORDERED: OXYTOCIN PRE-MIX DRIP 1,000 ML IV ONE (07:06)
[2022-10-07] MEDS ORDERED: fentaNYL INJ 100 MCG/2 ML AMP ONE (07:06)
--- NOTE | 2022-10-07 07:22 | History & Physical-OB ---
OB - Chief Complaint & HPI Date/Time Date of Admission: Date of Admission: Oct 07, 2022 at 05:28 Date seen by a Provider: Oct 07, 2022 Time Seen by a Provider: 07:05 Chief Complaint/History OB-Reason for Admission/Chief: Section Hx : 3 Hx Para: 2 Expected Date of Delivery: Oct 14, 2022 Gestational Age in Weeks: 39 Gestational Age in Days: 0 Indication for : desires repeat Admission Nurse Assessment Rev: Yes History of Labs O pos Antibody neg RI RPR NR HBsAg NR HIV NR GC neg GBS neg Allergies and Home Medications Allergies Coded Allergies: No Known Drug Allergies (Unverified , 10/01/22) Patient Home Medication List Home Medication List Reviewed: Yes Famotidine (Pepcid) 40 Mg Tablet, 40 MG PO NEEDED, (Reported) Entered as Reported by: Laura Devries on 10/01/221634 Last Action: Reviewed Ferrous Sulfate (Iron) 325 Mg (65 Mg Iron) Tablet, 325 MG PO DAILY, (Reported) Entered as Reported by: Laura Devries on 10/01/221634 Last Action: Reviewed Fyn294/Iron Fumarate/FA/Dss ( 19 Tablet) 1 Each Tablet, 1 EACH PO DAILY, (Reported) Entered as Reported by: CAITIE GONZALES on 05/26/19 0105 Last Action: Reviewed Discontinued Medications Acetaminophen (Acetaminophen) 500 Mg Tablet, 1,000 MG PO Q8HR Discontinued Reason: No Longer Taking Prescribed by: FARIHA SOTELO on 08/03/19627 Docusate Sodium (Dok) 100 Mg Capsule, 100 MG PO BID Discontinued Reason: No Longer Taking Prescribed by: FARIHA SOTELO on 08/03/19627 Ibuprofen (Ibu) 600 Mg Tablet, 600 MG PO Q6H Discontinued Reason: No Longer Taking Prescribed by: FARIHA SOTELO on 08/03/19627 Oxycodone Hcl (Oxyir Tablet) 5 Mg Tablet, 5 MG PO Q4HR PRN for severe pain Discontinued Reason: No Longer Taking Prescribed by: FARIHA SOTELO on 08/03/19627 OB - History Hx of Present Care: Yes Ultrasounds: Normal mid trimester US Obstetrical Complications: None Medical Complications: None Delivery History Adverse Rxn to Tranfusion: No (N/A) Patient Past Medical History nc Social History/Family History 2nd Hand Smoke Exposure: No Immunizations First/Initial COVID19 Vaccine: 05/24/20 Second COVID19 Vaccination: 06/27/20 Third COVID19 Vaccination Date: 02/07/21 Hepatitis A: Yes Hepatitis B: Yes Tetanus Booster (TDap): Less than 5yrs OB - Admission Exam Physical Exam Vitals: Vital Signs 10/07/22 05:50 Temp 36.2 Pulse 93 Resp 18 Pulse Ox 98 O2 Delivery Room Air HEENT: NCAT Heart: Rhythm Normal Lungs: Clear Abdomen: Gravid Extremities: Normal Reflexes: Normal Heart Rate: 130's Accelerations: Accelerations Present Decelerations: No Decelerations Short Term Variability: Present Wharf Operator Variability: Average (6-25) Contractions on Admission: >10 Minutes Apart Intensity: Mild Labs Laboratory Tests Test 10/07/22 05:50 Range/Units White Blood Count 10.1 4.3-11.0 10^3/uL Red Blood Count 4.22 3.80-5.11 10^6/uL Hemoglobin 13.2 11.5-16.0 g/dL Hematocrit 37 35-52 % Mean Corpuscular Volume 88 80-99 fL Mean Corpuscular Hemoglobin 31 25-34 pg Mean Corpuscular Hemoglobin Concent 35 32-36 g/dL Red Cell Distribution Width 13.8 10.0-14.5 % Platelet Count 207 130-400 10^3/uL Mean Platelet Volume 11.1 9.0-12.2 fL Immature Granulocyte % (Auto) 1 % Neutrophils (%) (Auto) 65 42-75 % Lymphocytes (%) (Auto) 27 12-44 % Monocytes (%) (Auto) 6 0-12 % Eosinophils (%) (Auto) 1 0-10 % Basophils (%) (Auto) 0 0-10 % Neutrophils # (Auto) 6.6 1.8-7.8 10^3/uL Lymphocytes # (Auto) 2.7 1.0-4.0 10^3/uL Monocytes # (Auto) 0.7 0.0-1.0 10^3/uL Eosinophils # (Auto) 0.1 0.0-0.3 10^3/uL Basophils # (Auto) 0.0 0.0-0.1 10^3/uL Immature Granulocyte # (Auto) 0.1 0.0-0.1 10^3/uL Syphilis Total Antibody Negative Negative OB - Assessment/Plan/Diagnosis Assessment Assessment: section Admission Dx 37 yo @ 39 weeks Previous GBS neg Admission Status: Inpatient Order (span 2 midnights) Reason for Inpatient Admission: RLTCS @ 39 weeks Plan Plan: Section LIMA BEAULIEU DO Oct 07, 2022 07:22
--- NOTE | 2022-10-07 07:25 | Discharge Inst-Women's Service ---
Discharge Inst-Women's Serv Depart Medication/Instructions New, Converted or Re-Newed RX: Transmitted to Pharmacy Final Diagnosis POD 2 RLTCS Problems Reviewed?: Yes Consults/Follow Up Additional Follow Up: Yes Orders/Referrals Dr. Marroquin in 7-10 days and in 6 weeks Activity Activity: Activity as Tolerated Driving Instructions: No Driving for 1 Week NO SMOKING: NO SMOKING Nothing Inside Vagina: No Douching, No [place], No Tampons Diet Discharge Diet: No Restrictions Symptoms to Report to : Bleeding Excessive, Pain Increased, Fever Over 101 Degrees F, Vaginal Bleeding Increase, Questions/Concerns For Any Problems or Questions: Contact Your Physician Skin/Wound Care Infection Signs and Symptoms: Increased Redness, Foul Odor of Wound, Increased Drainage, Skin Itchy or Has a Rash, Increased Swelling, Temperature Above 101 F Operative Area Clean and Dry: Keep Incision Clean/Dry Stitches/[place]/Dermabond: Dermabond, Care of Stitches Bathing Instructions: LIMA Mtz DO Oct 07, 2022 07:25
[2022-10-07] MEDS ORDERED: ONDANSETRON 4 MG/2 ML (SDV) Z0FRAN IVP PRN (07:30)
[2022-10-07] MEDS ORDERED: OXYTOCIN PRE-MIX DRIP 500 ML IV SCH (07:30)
[2022-10-07] MEDS ORDERED: NALOXONE 0.4 MG/ML 1 ML (NARCAN) VIAL IV PRN (07:30)
[2022-10-07] MEDS ORDERED: TETANUS,DIPTH,PERTUSS P/F (BOOSTRIX) 0.5 ML VIAL IM SCH (07:30)
[2022-10-07] MEDS ORDERED: MEASLES,MUMPS,RUBELLA 1 EA INJ SC SCH (07:30)
[2022-10-07] MEDS ORDERED: ROPIVACAINE 5MG/ML 30ML VIAL ONE (07:52)
[2022-10-07] MEDS ORDERED: PHENYLEPHRINE 100 MCG/ML 10 ML (ANESTHESIA) SYR ONE (07:58)
[2022-10-07] MEDS: DOCUSATE SODIUM 100 MG (COLACE) CAP PO SCH ×2 (10:39→21:19)
[2022-10-07] MEDS: KETOROLAC 30 MG/ML VIAL IV SCH ×2 (10:39→16:34)
[2022-10-07] MEDS: HYDROcodone/APAP 5 MG/325 MG (LORTAB) TAB PO PRN ×2 (13:44→21:19)
[2022-10-07] MEDS ORDERED: CATHETER FLUSH 10 ML SYR IV SCH (14:00)
--- NOTE | 2022-10-07 14:50 | OPERATIVE REPORT ---
PREOPERATIVE DIAGNOSES: 1. A 37-year-old at 39 weeks' gestation. 2. Previous section x2. POSTOPERATIVE DIAGNOSES: 1. A 37-year-old at 39 weeks' gestation. 2. Previous section x2. PROCEDURE: Repeat low transverse section. SURGEON: Sammy Beaulieu DO. ANESTHESIA: Spinal. ESTIMATED BLOOD LOSS: 200 mL. URINE OUTPUT: 200 mL clear at the end of procedure. FLUIDS: 1500 mL of lactated Ringer's solution. FINDINGS: A live female infant, weighing 7 pounds 5 ounces, Apgars 8 and 9. Grossly normal appearing uterus, bilateral fallopian tubes and ovaries. SPECIMEN SENT: None. INDICATIONS FOR PROCEDURE: This patient was admitted for elective repeat at 39 weeks. Risk of the procedure had been discussed with the patient in the preoperative area as well as in the timeframe. She was agreeable to proceed with the procedure despite the risk. After all the patient's questions were answered pertaining to the procedure in detail and the risks involved, consent was obtained and the patient was taken to the operating room. OPERATIVE REPORT IN DETAIL: Once in the operating room, spinal anesthesia was found to be adequate. She was placed in the supine position with leftward tilt, prepped and draped in normal sterile fashion. A timeout was performed. Anesthesia was tested. I then made a Pfannenstiel skin incision through the previously existing scar using knife and carried underlying fascia using Bovie cautery. The fascial incision extended laterally using Bovie cautery. Superior aspect of fascial incision was then grasped with Cordell clamps, tented up and dissected off the underlying rectus muscles. The inferior aspect of the fascial incision was then grasped with Cordell clamps, tented up, and dissected off the underlying rectus muscles. Rectus muscles were dissected down the midline using sharp dissection, which exposed the peritoneum, which entered bluntly using blunt traction. Jelani ring retractor was placed in the peritoneal incision, which offers excellent lateral sidewall retraction. I identified lower uterine segment and was found to be thinned out. I made a low transverse incision to the vesicouterine peritoneum and bluntly dissected off the lower uterine segment, creating a bladder flap. I then proceeded with myotomy until membranes were visualized, at which point I thinned uterine incision laterally and superiorly using bandage scissors. Amniotomy was then performed. In the process of doing this, clear fluid was noted. The was found in vertex presentation. With gentle fundal pressure, the infant's head elevated up to the incision where it was delivered through the incision. The nares and oropharynx were bulb suctioned. Anterior and posterior shoulders were delivered and the was then brought to the operative field where the cords were clamped and cut and infant was handed off to waiting nurses in attendance. Cord blood was collected. Three-vessel cord with intact placenta was delivered spontaneously thereafter. IV Pitocin was initiated to facilitate uterine contraction. Uterine fundus confirmed by manual massage. The uterus was exteriorized and cleared of all endometrial clots and debris. I then proceeded with closing the uterine incision using 0 Vicryl suture in a running locked fashion. Second layer of imbricating 0 Monocryl was placed. Excellent hemostasis was noted after doing this. I then placed the uterus back in the pelvis. Copiously irrigated the pelvis using normal saline. Once again, there was no active bleeding noted from any of my dissection planes. I placed Interceed antiadhesive over my low transverse incision. I removed the Jelani ring retractor and then proceeded with closing the peritoneum using 3-0 Vicryl suture in a running fashion. The rectus muscles were reapproximated using 3-0 Vicryl suture in interrupted fashion. The fascia was reapproximated using 0 Vicryl suture in a running fashion. The subcutaneous tissue was reapproximated using 3-0 plain interrupted subcutaneous stitch and skin reapproximated using 4-0 Monocryl running subcuticular. Dermabond was applied to incision and sterile dressing was adhesed with white tape. The patient tolerated the procedure well and sent to recovery area in stable condition. Lap and sponge counts were correct at the end of the procedure. Instrument counts correct as well. Two grams of Ancef were given preoperatively for infection prophylaxis. Job ID: [id number] DocumentID: [id number] Dictated Date: 10/07/2022 08:38:17 Automobile Detailer Date: 10/07/2022 14:48:00 Dictated By: SAMMY BEAULIEU DO
[2022-10-07] MEDS ORDERED: IBUPROFEN 600 MG (MOTRIN) TAB PO ONE (22:14)
[2022-10-07] MEDS ORDERED: KETOROLAC 30 MG/ML VIAL IVP SCH ×2 (22:30→22:45)
[2022-10-08 00:14] VITALS: BP 123/76
[2022-10-08 05:17] VITALS: BP 130/70
[2022-10-08] MEDS: HYDROcodone/APAP 5 MG/325 MG (LORTAB) TAB PO PRN ×3 (05:40→17:42)
[2022-10-08 06:05] LABS: BASOPHILS # (AUTO) 0.1 10^3/uL (0.0-0.1); BASOPHILS % (AUTO) 0 % (0-10); EOSINOPHILS # (AUTO) 0.1 10^3/uL (0.0-0.3); EOSINOPHILS % (AUTO) 1 % (0-10); HEMATOCRIT 32 % (35-52); HEMOGLOBIN 11.1 g/dL (11.5-16.0); LYMPHOCYTES # (AUTO) 1.6 10^3/uL (1.0-4.0); LYMPHOCYTES % (AUTO) 13 % (12-44); MEAN CORPUSCULAR HEMOGLOBIN 31 pg (25-34); MEAN CORPUSCULAR HGB CONC 35 g/dL (32-36); MEAN CORPUSCULAR VOLUME 90 fL (80-99); MEAN PLATELET VOLUME 11.2 fL (9.0-12.2); MONOCYTES # (AUTO) 0.8 10^3/uL (0.0-1.0); MONOCYTES % (AUTO) 7 % (0-12); NEUTROPHILS # (AUTO) 9.3 10^3/uL (1.8-7.8); NEUTROPHILS % (AUTO) 78 % (42-75); PLATELET COUNT 166 10^3/uL (130-400); WHITE BLOOD COUNT 11.9 10^3/uL (4.3-11.0)
[2022-10-08 08:00] VITALS: BP 122/74
[2022-10-08] MEDS ORDERED: LACTATED RINGERS 1,000 ML IV SCH (08:30)
--- NOTE | 2022-10-08 08:34 | Postpartum Progress Note ---
Note Note Day #1 Subjective: PatientHas concerns about her right shoulder being painful and increased pain with deep breathing. Patient has been using her incentive spirometer. Patient also states that she is feeling dizzy today. Total QBL was 565. Hemoglobin this morning was 11.1 down from 13.2. Ambulating, voiding. Tolerating a regular diet without nausea or vomiting. Normal lochia. Pain is well controlled with oral pain medications. . [] Objective: [] Physical Exam: General - Alert and oriented, no apparent distress Rib raising bilaterally and cervical soft tissue was performed. Soft tissue was performed on the trapezius muscle bilaterally. Patient did experience a small amount of relief. Breast symmetrical no erythema edema or engorgement Abdomen - Soft, appropriately tender to palpation, non-distended, fundus firm at umbilicus Incision clean dry intact no signs or symptoms of infection Lochia minimal Extremities - no edema, negative Anni's bilaterally Assessment: [] post- day # 1, status post Repeat low-transverse delivery. Recovering well, hemodynamically stable Dizziness and right shoulder pain Plan: Routine care. Encourage breast feeding Encourage shower today warm heating pad to right shoulder. Encourage ambulation. IV fluid hydration this morning Ferrous sulfate supplementation. Plan for discharge [] Vitals - Labs Vital Signs - I&O Vital Signs Date Time Temp Pulse Resp B/P (MAP) Pulse Ox O2 Delivery O2 Flow Rate FiO2 10/08/22 05:17 36.3 80 18 130/70 (90) 97 Room Air 10/08/22 00:14 36.1 82 18 123/76 (92) 98 Room Air 10/07/22 21:18 36.1 81 18 121/74 (90) 99 10/07/22 16:40 36.5 74 18 128/70 (89) 99 Room Air 10/07/22 13:45 36.4 72 18 109/63 (78) 100 Room Air 10/07/22 11:30 36.3 69 18 101/54 (70) 99 Room Air 10/07/22 09:40 36.5 70 16 101/74 (83) 99 Room Air 10/07/22 09:30 36.4 16 98/65 (76) 98 Room Air 10/07/22 09:30 Room Air 10/07/22 09:15 Room Air 7/12/23 09:15 36.4 16 95/67 (76) 98 Room Air 10/07/22 09:00 36.4 16 100/67 (78) 97 Room Air 10/07/22 09:00 Room Air 10/07/22 08:45 Room Air 10/07/22 08:45 36.5 16 96/50 (65) 99 Room Air I & O 10/08/22 07:00 Intake Total 3970 ml Output Total 2315 ml Balance 1655 ml Labs Laboratory Tests 10/08/22 05:58: White Blood Count 11.9H, Red Blood Count 3.53L, Hemoglobin 11.1L, Hematocrit 32L , Mean Corpuscular Volume 90, Mean Corpuscular Hemoglobin 31, Mean Corpuscular Hemoglobin Concent 35, Red Cell Distribution Width 14.1, Platelet Count 166, Mean Platelet Volume 11.2, Immature Granulocyte % (Auto) 1, Neutrophils (%) (Auto) 78H, Lymphocytes (%) (Auto) 13, Monocytes (%) (Auto) 7, Eosinophils (%) (Auto) 1, Basophils (%) (Auto) 0, Neutrophils # (Auto) 9.3H, Lymphocytes # (Aut o) 1.6, Monocytes # (Auto) 0.8, Eosinophils # (Auto) 0.1, Basophils # (Auto) 0.1, Immature Granulocyte # (Auto) 0.1 RILEY REED 13, 2023 08:34
[2022-10-08] MEDS: IBUPROFEN 600 MG (MOTRIN) TAB PO SCH ×3 (08:41→19:56)
[2022-10-08] MEDS: DOCUSATE SODIUM 100 MG (COLACE) CAP PO SCH ×2 (08:42→19:56)
[2022-10-08 12:00] VITALS: BP 115/71
[2022-10-08] MEDS ORDERED: IBUPROFEN 600 MG (MOTRIN) TAB PO SCH (14:00)
--- NOTE | 2022-10-08 14:07 | Anesthesia-Regional Post-Op ---
Regional Patient Condition Mental Status: Alert, Oriented x3 Circulation: Same as Pre-Op Headache: Absent Sensation: Full Recovery Motor Block: Absent Post Op Complications Complications None Follow Up Care/Instructions Patient Instructions None needed. Anesthesia/Patient Condition Patient is doing well, no complaints, stable vital signs, no apparent adverse anesthesia problems. No complications reported per nursing. THA MORRIS CRNA Oct 08, 2022 14:07
[2022-10-08] MEDS ORDERED: METHYL SALICYLATE/MENTHOL (BENGAY, MUSCLE RUB) 3 OZ TUBE TP PRN (17:15)
--- NOTE | 2022-10-08 17:18 | Progress Note ---
Standard Progress Note Progress Notes/Assess & Plan Date Seen by a Provider: Oct 08, 2022 Time Seen by a Provider: 17:15 Progress/Assessment & Plan Pt was able to get up and ambulate today She also took shower and stretched her shoulder and feels better Will have her use Bengay to help relax muscles. RILEY REED DO Oct 08, 2022 17:18
[2022-10-08 19:55] VITALS: BP 129/77
[2022-10-09 02:09] VITALS: BP 129/75
[2022-10-09] MEDS: IBUPROFEN 600 MG (MOTRIN) TAB PO SCH ×2 (02:10→08:18)
[2022-10-09] MEDS: HYDROcodone/APAP 5 MG/325 MG (LORTAB) TAB PO PRN (03:34)
[2022-10-09 08:15] VITALS: BP 125/74
[2022-10-09] MEDS: DOCUSATE SODIUM 100 MG (COLACE) CAP PO SCH (08:18)
--- NOTE | 2022-10-09 08:37 | Short Stay Summary ---
Discharge Summary Hospital Course Final Diagnosis: Previous x2, post Hospital Course Date of Admission: Oct 07, 2022 at 05:28 Admission Diagnosis : Family Physician/Provider: [place] Date of Discharge: 10/09/22 Discharge Diagnosis: Previous X 2 Hospital Course: Uncomplicated repeat 10/07/22 under spinal anesthesia productive of viable 7 lbs. 5 onz. female infant with 8/9. EBL 200 mL Uncomplicated post-op course. Discharged home on POD 2. Follow up with Dr. Marroquin in 1 week. Labs and Pending Lab Test: Home Meds Active Reported Iron (Ferrous Sulfate) 325 Mg (65 Mg Iron) Tablet 325 Mg PO DAILY Pepcid (Famotidine) 40 Mg Tablet 40 Mg PO NEEDED 19 Tablet ([id number]/Iron Fumarate/FA/Dss) 1 Each Tablet 1 Each PO DAILY Assessment/Pt Instructions Written Instructions. Discharge Instructions Discharge Diet: No Restrictions Activity as Tolerated: Yes Discharge Physical Examination General Appearance: Alert, Oriented X3 Respiratory: Normal Air Movement Abdominal: No Tenderness, Other (Incision intact and without erythema or drainage. Uterus firm 4 cm below umbilicus) Extremities: No Clubbing, No Tenderness/Swelling Skin: No Rashes Neuro: Normal Gait, Normal Speech, Sensation Intact Psych/Mental Status: Mental Status NL Allergies: Coded Allergies: No Known Drug Allergies (Unverified , 10/01/22) Discharge Summary Date of Admission Oct 07, 2022 at 05:28 Date of Discharge 10/09/22 Discharge Date: Oct 09, 2022 Discharge Time: 08:35 Admission Diagnosis Previous x2 Status post repeat Consults/Procedures Procedures Spinal Anesthesia Repeeat Discharge Diagnosis Previous x 2 Status post Repeat JOSE GUADALUPE JONES DO Oct 09, 2022 08:34
[2022-10-09] MEDS ORDERED: IBUP-844 PO (11:54)
[2022-10-09] MEDS ORDERED: ACHD5005 PO (11:54)
[2022-10-09] MEDS ORDERED: ACET-2267 PO (11:54)
== END 2022-10-09 12:20 | disposition home or self-care (01) | DRG 788 ==
LOC: LDRP 05:28
PROVIDERS: ADMIT Obstetrics & Gynecology; ATTEND Obstetrics & Gynecology
PROC: 10D00Z1 Extraction of Products of Conception, Low, Open Approach (ICD-10-PCS; principal; 2022-10-07 07:42)
DX: O34.211 Maternal care for low transverse scar from previous cesarean delivery (principal); Z3A.39 39 weeks gestation of pregnancy; Z37.0 Single live birth
CPT/HCPCS: 36415; 85025; 86780; 86850; 86900; 86901; 94664